=== PATIENT | male | born 1935 | race Caucasian/White ===

== ENCOUNTER 2017-12-05 06:16 | Day surgery (SDC) | payer MEDICARE, OTHER ==
[~2017-12-05] VITALS: Ht 172.7 cm; Wt 94.8 kg
[2017-12-05 06:33] VITALS: BP 124/86; PULSE 77; TEMP 98.2
[2017-12-05] MEDS ORDERED: GLUCOTROL 5M5 MG/TAB PO (07:05)
[2017-12-05] MEDS ORDERED: PRINIVIL5 MG PO (07:05)
[2017-12-05] MEDS ORDERED: FORT1000TA PO (07:06)
[2017-12-05] MEDS ORDERED: MASON NATURAL2000 IU PO (07:07)
[2017-12-05] MEDS ORDERED: PROTONIX 40MG T40 MG PO (07:07)
[2017-12-05] MEDS ORDERED: ZOCOR 40MG40 MG PO (07:08)
[2017-12-05] MEDS ORDERED: BLUEBERRY PO (07:09)
[2017-12-05] MEDS ORDERED: ASPIRIN 81M81 MG/TA2 PO (07:09)
[2017-12-05] MEDS ORDERED: CENTRUM SILVER1 TAB PO (07:10)
[2017-12-05] MEDS ORDERED: CHERRY FLEX PO (07:10)
[2017-12-05] MEDS ORDERED: GLUCOSAMINE 1000 PO (07:11)
[2017-12-05 08:04] VITALS: BP 117/70; PULSE 72; TEMP 97.2
[2017-12-05 08:19] VITALS: BP 105/65; PULSE 66
[2017-12-05 08:34] VITALS: BP 115/73; PULSE 70
[2017-12-05 13:26] VITALS: BP 111/68; PULSE 71
== END 2017-12-05 09:00 | disposition home or self-care (01) ==
LOC: SDCO 06:16
DX: K57.30 Diverticulosis of large intestine without perforation or abscess without bleeding (principal); K92.1 Melena; D50.0 Iron deficiency anemia secondary to blood loss (chronic); E78.00 Pure hypercholesterolemia, unspecified; E11.22 Type 2 diabetes mellitus with diabetic chronic kidney disease; N18.9 Chronic kidney disease, unspecified; K21.9 Gastro-esophageal reflux disease without esophagitis; M19.90 Unspecified osteoarthritis, unspecified site; Z88.5 Allergy status to narcotic agent; Z79.84 Long term (current) use of oral hypoglycemic drugs; Z79.82 Long term (current) use of aspirin; Z83.79 Family history of other diseases of the digestive system
CPT/HCPCS: J2250; J3010; J7030